=== PATIENT | female | born 1990 | race Caucasian/White ===

== ENCOUNTER 2018-10-04 17:57 | Outpatient (CLI) | payer MEDICAID ==
[2018-10-04] MEDS: ACETAMINOPHEN 325 MG TAB PO (18:34)
[2018-10-04 19:22] LABS: ADD UMIC YES; UR ASCORBIC ACID 20 mg/dL (NEGATIVE); UR BACTERIA FEW /HPF (NONE SEEN); UR BILIRUBIN (Dip) NEGATIVE (NEGATIVE); UR BLOOD (Dip) NEGATIVE (NEGATIVE); UR CLARITY SLIGHTLY CLOUDY (CLEAR); UR COLOR YELLOW (YELLOW); UR GLUCOSE (Dip) NEGATIVE (NEGATIVE); UR KETONES (Dip) NEGATIVE (NEGATIVE); UR LEUKOCYTE ESTERASE (Dip) 3+ Leu/ul (NEGATIVE); UR NITRITE (Dip) NEGATIVE (NEGATIVE); UR RBC 4 /HPF (0-5); UR SPECIFIC GRAVITY (Dip) 1.012 (1.003-1.030); UR SQUAMOUS EPITHELIAL CELL MODERATE /HPF (FEW); UR TOTAL PROTEIN (Dip) NEGATIVE (NEGATIVE); UR UROBILINOGEN (Dip) NEGATIVE (NEGATIVE); UR WBC 8 /HPF (0-5)
== END 2018-10-04 20:32 | disposition home or self-care (01) ==
LOC: OBT 17:57 → L-D 18:00 → OBT 20:32
DX: O26.893 Other specified pregnancy related conditions, third trimester (principal); R50.9 Fever, unspecified; M79.10 Myalgia, unspecified site; R19.7 Diarrhea, unspecified; R05 Cough; Z3A.35 35 weeks gestation of pregnancy
CPT/HCPCS: 76818; 81001

== ENCOUNTER 2018-10-05 11:46 | Emergency (ER) | payer MEDICAID | END 2018-10-05 13:54 | disposition home or self-care (01) | LOC: FTE 11:46 | DX: O99.513 Diseases of the respiratory system complicating pregnancy, third trimester (principal); J10.1 Influenza due to other identified influenza virus with other respiratory manifestations; Z3A.36 36 weeks gestation of pregnancy | CPT/HCPCS: 87400; 99283 ==